=== PATIENT | male | born 1985 | race Caucasian/White ===

== ENCOUNTER 2025-03-18 22:51 | Emergency (ER) | payer SELFPAY ==
[~2025-03-18] VITALS: Ht 167.6 cm; Wt 78.0 kg
[2025-03-18 23:15] VITALS: O2SAT 98
[2025-03-18] MEDS ORDERED: IBUP-2029 MT (23:56)
[2025-03-18] MEDS: IBUPROFEN 600MG TABLET PO ONE (23:57)
[2025-03-19 00:38] VITALS: BP 145/90; PULSE 61; RESP 12; TEMP 36.9; O2SAT 98
== END 2025-03-19 00:40 | disposition home or self-care (01) ==
LOC: ER 22:51
DX: S62.391A Other fracture of second metacarpal bone, left hand, initial encounter for closed fracture (principal); W19.XXXA Unspecified fall, initial encounter; Y93.61 Activity, american tackle football; Y92.89 Other specified places as the place of occurrence of the external cause; Y99.8 Other external cause status
CPT/HCPCS: 29125; 73110; 99283